=== PATIENT | male | born 1955 | race African-American/Black ===

== ENCOUNTER 2020-04-03 15:48 | Emergency (ER) | payer MEDICAID, OTHER ==
[~2020-04-03] VITALS: Ht 172.7 cm; Wt 56.7 kg
[~2020-04-03 15:48] MED LIST: AMLODIPINE BESY10 MG ORAL; HYDROCHLOROTHIA25 MG ORAL; LEVAQUIN500 MG ORAL; LISINOPRIL20 MG ORAL; NKM; NORCO 5-325 TA1 EACH PO; NORMODYNE200 MG ORAL; PEPCID20 MG ORAL; PROVENTIL HFA6.7 G1 IH; TYLENOL325 MG ORAL
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
--- NOTE | 2020-04-03 16:43 | Diagnostic Imaging Report ---
EXAM: XR Left Elbow Complete, 3 or More Views CLINICAL HISTORY: INJ TECHNIQUE: Frontal, lateral and oblique views of the left elbow. COMPARISON: No relevant prior studies available. FINDINGS: Bones/joints: Unremarkable. No acute fracture. No dislocation. Soft tissues: Unremarkable. IMPRESSION: Normal left elbow x-rays.
[2020-04-03] MEDS ORDERED: IBUPROFEN600 M1 ORAL (16:58)
[2020-04-03 17:00] VITALS: BP 120/77
--- NOTE | 2020-04-03 17:00 | NUR ---
ER DISCHARGE NOTE: Patient is cleared to be discharged per ERMD, pt is aox4, on room air, with stable vital signs. pt was given dc and prescription instructions, pt was able to verbalize understanding, pt id band and iv site removed without complications. pt is able to ambulate with steady gait. pt took all belongings.
== END 2020-04-03 17:00 | disposition home or self-care (01) ==
LOC: EDBD 15:48 → EMR 16:00
DX: M25.522 Pain in left elbow (principal); Y04.2XXA Assault by strike against or bumped into by another person, initial encounter
CPT/HCPCS: 73080; Z7502; 99283